=== PATIENT | female | born 1945 | race Caucasian/White ===

== ENCOUNTER 2021-01-08 08:20 | Inpatient (IN) | payer OTHER ==
[~2021-01-08] VITALS: Ht 157.5 cm; Wt 43.1 kg
[2021-01-08 10:32] VITALS: BP 117/88
[2021-01-08] MEDS ORDERED: DURAGESIC1 EAC4 (13:39)
[2021-01-08] MEDS ORDERED: ZOLOFT25 MG (13:40)
[2021-01-08] MEDS ORDERED: CHILDREN'S ASPI81 M1 (13:41)
[2021-01-08] MEDS ORDERED: CALCIUM + D3 E1 EACH (13:42)
[2021-01-08] MEDS ORDERED: LIPITOR 20 MG T20 M1 (13:42)
[2021-01-08] MEDS ORDERED: AMITIZA 24 MCG24 MC1 (13:46)
[2021-01-08] MEDS ORDERED: LISINOPRIL10 MG (13:47)
[2021-01-08 16:05] VITALS: BP 77/46
[2021-01-08 17:17] LABS: ABSOLUTE LYMPHOCYTES 1.2 thou/uL (0.8-5.3); ABSOLUTE MONOCYTES 0.7 thou/uL (0.0-1.2); ABSOLUTE NEUTROPHILS 4.4 thou/uL (1.6-8.1); BASOPHILS 0.5 %; EOSINOPHILS 0.4 %; HEMATOCRIT 35.6 % (37.0-47.0); HEMOGLOBIN 11.9 gm/dL (12.0-15.0); LYMPHOCYTES 18.5 %; MCH 30.4 pg (26.0-34.0); MCHC 33.5 g/dL (28.0-37.0); MCV 90.8 fL (80.0-100.0); MONOCYTES 11.1 %; MPV 7.1 fl. (7.2-11.1); NUCLEATED RBCS 0 /100WBC; PLATELET COUNT* 260 thou/uL (150-400); POLYS 69.5 %; RBC 3.93 mil/uL (4.20-5.00); WBC 6.4 thou/uL (4.0-11.0)
[2021-01-08 17:28] LABS: ALBUMIN 3.3 g/dL (3.4-5.0); CALCIUM 8.4 mg/dL (8.5-10.1); TOTAL BILIRUBIN 0.3 mg/dL (<0.1-1.0); TOTAL PROTEIN 7.1 g/dL (6.4-8.2)
[2021-01-08 20:27] VITALS: BP 118/69
[2021-01-09 07:25] VITALS: BP 146/85
[2021-01-09 09:19] VITALS: BP 146/85
[2021-01-09 09:37] VITALS: BP 146/85
[2021-01-09] MEDS ORDERED: OXYCODONE HCL 55 MG PO (13:31)
--- NOTE | 2021-01-09 17:14 | 2DMMODE ---
[place] [address] 2 D/M-MODE ECHOCARDIOGRAM Name: TOMMY GUZMAN Room: [address] [place] .R.#: [id number] Admission: 01/08/21 Attend Phys: Hesham Chaparro Discharge: 01/09/21 Date of : 45 Date of Service: 01/09/21 1714 Report #: [id number] THIS REPORT FOR: cc: Najma Rojas MD, Marc D. FNPC Blick, David R. MD [facility] ~ APPROVED REPORT Study performed: 01/09/2021 13:48:50 EXAM: Comprehensive 2D, Doppler, and color-flow Echocardiogram Patient Location: In-Patient Room #: 113 Status: routine BSA: 1.39 HR: 84 bpm BP: 146/85 mmHg Rhythm: NSR Other Information Study Quality: Good Indications Murmur 2D Dimensions IVSd: 10.89 (7-11mm) LVOT Diam: 19.92 (18-24mm) LVDd: 35.42 mm PWd: 9.66 (7-11mm) Ascending Ao: 32.70 (22-36mm) LVDs: 16.80 (25-40mm) Aortic Root: 35.27 mm Volumes Left Atrial Volume (Systole) LA ESV Index: 15.00 mL/m2 Aortic Valve AoV Peak Kavin.: 1.18 m/s AO Peak Gr.: 5.55 mmHg LVOT Max P.93 mmHg AO Mean Gr.: 3.08 mmHg LVOT Mean P.82 mmHg LVOT Max V: 0.99 m/s AO V2 VTI: 23.70 cm LVOT Mean V: 0.61 m/s GARRY (VTI): 2.78 cm2 LVOT V1 VTI: 21.14 [place] [address] 2 D/M-MODE ECHOCARDIOGRAM Name: TOMMY GUZMAN Room: [address] [place] .R.#: [id number] Admission: 01/08/21 Attend Phys: Hesham Chaparro Discharge: 01/09/21 Date of : 45 Date of Service: 01/09/21 1714 Report #: [id number] Mitral Valve E/A Ratio: 0.58 MV Decel. Time: 174.04 ms MV E Max Kavin.: 0.55 m/s MV PHT: 50.47 ms MVA (PHT): 4.36 cm2 TDI E/Lateral E': 6.11 E/Medial E': 6.88 Medial E' Kavin.: 0.08 m/s Lateral E' Kavin.: 0.09 m/s Pulmonary Valve PV Peak Kavin.: 0.79 m/s PV Peak Gr.: 2.51 mmHg Tricuspid Valve RAP Estimate: 5.00 mmHg TR Peak Gr.: 31.72 mmHg RVSP: 36.00 mmHg PA Pressure: 36.00 mmHg Left Ventricle The left ventricle is normal size. There is normal LV segmental wall motion. There is normal left ventricular wall thickness. Left ventricular systolic function is normal. The left ventricular ejection fraction is within the normal range. LVEF is 65-70%. Grade I - abnormal relaxation pattern. Right Ventricle The right ventricle is normal size. The right ventricular systolic function is normal. Atria The left atrium size is normal. The right atrium size is normal. Aortic Valve The aortic valve is normal in structure. No aortic regurgitation is present. There is no aortic valvular stenosis. Mitral Valve The mitral valve is normal in structure. Mild mitral regurgitation. No evidence of mitral valve stenosis. Tricuspid Valve The tricuspid valve is normal in structure. Trace tricuspid regurgitation. estimated pa pressure 40 [place] [address] 2 D/M-MODE ECHOCARDIOGRAM Name: TOMMY GUZMAN Room: [address] [place] ..#: [id number] Admission: 01/08/21 Attend Phys: Hesham Chaparro Discharge: 01/09/21 Date of : 45 Date of Service: 01/09/21 1714 Report #: [id number] Pulmonic Valve The pulmonary valve is normal in structure. Mild pulmonic regurgitation. Great Vessels The aortic root is normal in size. IVC is normal in size and collapses >50% with inspiration. Pericardium There is no pericardial effusion. <Conclusion> LVEF is 65-70%. Mild mitral regurgitation. Trace tricuspid regurgitation. estimated pa pressure 40 mm Hg <ELECTRONICALLY SIGNED> By: Ryan Rush MD, [facility] 01/09/211713 13 13 Ryan Rush MD, FACC /INF
== END 2021-01-09 14:16 | disposition home or self-care (01) | DRG 543 ==
LOC: M.PRE 08:20 → M.ORTHSURG 10:12
PROVIDERS: Orthopaedic Surgery; ADMIT Internal Medicine; ATTEND Internal Medicine
DX: M80.031A Age-related osteoporosis with current pathological fracture, right forearm, initial encounter for fracture (principal); E87.1 Hypo-osmolality and hyponatremia; E44.1 Mild protein-calorie malnutrition; Z68.1 Body mass index [BMI] 19.9 or less, adult; I10 Essential (primary) hypertension; E78.5 Hyperlipidemia, unspecified; F32.9 Major depressive disorder, single episode, unspecified; I73.9 Peripheral vascular disease, unspecified; F17.210 Nicotine dependence, cigarettes, uncomplicated; Z96.641 Presence of right artificial hip joint; Z88.2 Allergy status to sulfonamides; Z79.82 Long term (current) use of aspirin; Z79.899 Other long term (current) drug therapy

== ENCOUNTER → 2021-01-25 | Day surgery (SDC) | payer OTHER ==
[~2021-01-25] MED LIST: AMITIZA 24 MCG24 MC1; CALCIUM + D3 E1 EACH; CHILDREN'S ASPI81 M1; DURAGESIC1 EAC4; FLEXERIL PO; LIPITOR 20 MG T20 M1; LIPITOR40 MG PO; LISINOPRIL10 MG; OXYCODONE HCL 55 MG PO; PLAVIX 75 MG TA75 MG PO; ZOLOFT25 MG
--- NOTE | ~2021-01-25 | OP ---
[facility] [place] [address] OPERATIVE REPORT Name: TOMMY GUZMAN Room: [facility]#: [id number] Admission: 01/25/21 Attend Phys: Fadi Dewitt, Discharge: Date of : 45 Report #: [id number] THIS REPORT FOR: cc: Chago Medina Marc D. FNPC Barnhill, Gregory L. DO ~ DOC #: [id number] Jae Freitas DO DATE OF SURGERY: 01/25/2021 Dr. Jae Freitas dictating for Dr. Fadi Dewitt. PREOPERATIVE DIAGNOSIS: Displaced, comminuted, closed right distal radius fracture. POSTOPERATIVE DIAGNOSIS: Greater than 3-part closed right distal radius fracture. PROCEDURE: Open reduction and internal fixation of right distal radius. IMPLANTS: [employer] distal radius plate, narrow. SURGEON: Fadi Dewitt DO ASSISTANTS: 1. Jae Freitas DO 2. Joaquin Cortes DO ANESTHESIA: General and supraclavicular nerve block by Anesthesia. FLUIDS: Crystalloid per Anesthesia. ESTIMATED BLOOD LOSS: 5 mL. DRAINS: None. SPECIMENS: None. COMPLICATIONS: None. CONDITION: Stable to PACU. DISPOSITION: Recovery in the PACU and discharged home. ANTIBIOTICS: 1 gram Ancef IV preop. [facility] [place] [place] [address] OPERATIVE REPORT Name: TOMMY GUZMAN Room: [facility]#: [id number] Admission: 01/25/21 Attend Phys: Fadi Dewitt, Discharge: Date of : 45 Report #: [id number] TOURNIQUET TIME: 60 minutes at 250 mmHg. INDICATIONS FOR PROCEDURE: The patient is a 75-year-old female who sustained a ground level fall at home approximately 2 weeks ago. She presented to an outside Emergency Department where x-rays identified a displaced distal radius fracture. She then subsequently followed up at [facility] and was admitted overnight. She was then discharged and followed up in clinic. Repeat radiographs showed a displaced and significantly dorsally angulated distal radius fracture. Given the amount of her angulation, comminution and displacement, we discussed open reduction and internal fixation. We did also discuss nonoperative treatments and the ramifications of both. The risks, benefits, alternatives and possible complications of surgery including, but not limited to pain, stiffness, infection, nonunion, malunion, hardware failure, need for repeat surgery, neurovascular injury, DVT, PE, and anesthetic complications. She expressed her understanding and wished to proceed. We did also discuss the increased risk of complications given her history of smoking and strongly advised that she quit. DESCRIPTION OF PROCEDURE: The patient was met in the preoperative area. Consent was obtained both verbally and written. The correct site was marked. She was transferred to the operative suite and placed supine on the operative table. She was given the benefit of general anesthetic. A well-padded nonsterile tourniquet was applied to the right upper arm. The right upper extremity was then prepped and draped in the usual sterile fashion. A timeout was performed to verify the correct patient, procedure and operative site. All in the room were in agreement. We exsanguinated the extremity with an Esmarch, followed by elevation of the tourniquet. We then began the procedure with the volar incision based over the FCR tendon. We carried this through the tendon sheath and exposed the tendon itself. We then retracted the tendon and then carried dissection down through the floor of the tendon sheath. We bluntly dissected through soft tissue down to the level of the pronator quadratus. We then elevated this off the distal radius in an L-type fashion on the radial side and distal end, and used a small elevator to remove soft tissue from the distal radius. At this point, we identified our fracture. We were able to get this open using a [place] elevator and an osteotome. We irrigated and cleaned out interposed tissue. We then performed a reduction remover restoring appropriate inclination, height and volar angulation. We then selected the narrow plate and applied this to the distal radius. We placed two temporary K-wires, one distally and one proximally. We took fluoroscopic images to confirm appropriate positioning of the plate and adequate reduction. We then placed two cortical screws distally to bring the plate down to bone. We then filled the most distal screw holes with locking smooth pegs. We then turned our attention proximally where we drilled in the oblong hole on the distal aspect in order to help gain length at the fracture site. We placed an appropriately sized cortical screw, which also brought the plate down to bone and also assisted with volar tilt. We [address] [address] OPERATIVE REPORT Name: TOMMY GUZMAN Room: [facility] M.R.#: [id number] Admission: 01/25/21 Attend Phys: Fadi Dewitt, Discharge: Date of : 45 Report #: [id number] then placed one additional cortical screw proximally and a locking screw proximally given her poor bone quality. We then placed a styloid screw with fluoroscopic guidance. We drilled and placed a fully threaded locking screw into the radial styloid. We took final fluoroscopic images to confirm appropriate fracture reduction and placement of our plate. We also did ensure that there were no screws into the radiocarpal joint. Final x-rays were taken and saved. The tourniquet was then let down. Hemostasis was obtained with electrocautery. The radial artery was found to be intact. We thoroughly irrigated the wound. The subcutaneous tissue was closed with 3-0 Vicryl suture in simple interrupted inverted fashion. The skin was closed with 3-0 nylon in a running fashion. We then applied a sterile dressing including Xeroform and 4 x 4s. We applied a well-padded volar splint. The patient tolerated the procedure well and was transferred to the PACU in stable condition without complications. Needle and sponge counts were correct x 2 at the end of the case. Dr. Dewitt was present and scrubbed throughout all critical aspects of the case. DO AKIRA Sherwood/ROC By: [id number] Dewitt DO /nt
[2021-01-25 08:27] LABS: HEMOGLOBIN 11.9 gm/dL (12.0-15.0); MCH 30.3 pg (26.0-34.0); MCHC 34.1 g/dL (28.0-37.0); MCV 88.8 fL (80.0-100.0); MPV 6.6 fl. (7.2-11.1); RBC 3.94 mil/uL (4.20-5.00); RDW-CV 14.4 % (10.5-14.5); WBC 9.1 thou/uL (4.0-11.0)
[2021-01-25 08:36] LABS: CALCIUM 8.9 mg/dL (8.5-10.1); CREATININE 0.9 mg/dL (0.6-1.3)
[2021-01-25 08:37] LABS: POTASSIUM 4.2 mmol/L (3.5-5.1)
--- NOTE | 2021-01-25 15:16 | EKG ---
[place] [address] ELECTROCARDIOGRAM REPORT Name: TOMMY GUZMAN Room: [facility]#: [id number] Admission: 01/25/21 Attend Phys: Fadi Woodruff Discharge: Date of : 45 Date of Service: 01/25/21801 Report #: [id number] THIS REPORT FOR: //name// [facility] Test Date: 2021-01-25 Test Time: 08:02:02 Pat Name: TOMMY GUZMAN Department: Room: Gender: Public Relations Account Executive: : 1945 Requested By: Fadi Dewitt Order Number: [id number] Jack MD: Ryan Rush Measurements Intervals [place] Rate: 74 P: 21 NM: 181 QRS: -60 QRSD: 106 T: 37 QT: 387 QTc: 430 Interpretive Statements Sinus rhythm Inferior infarct, old septal infarct, old Lateral leads are also involved No previous ECG available for comparison Electronically Signed On 01-25-2021 15:16:04 CDT by Ryan Rush [email or web address] <ELECTRONICALLY SIGNED> By: Ryan Rush MD, [facility] 01/25/21 1516 08 0802 Ryan Rush MD, [facility] /EPI
== END | disposition home or self-care (01) ==
LOC: M.SUR 06:12
PROVIDERS: ATTEND Orthopaedic Surgery
DX: S52.571A Other intraarticular fracture of lower end of right radius, initial encounter for closed fracture (principal); M25.531 Pain in right wrist; I10 Essential (primary) hypertension; E78.5 Hyperlipidemia, unspecified; F32.9 Major depressive disorder, single episode, unspecified; Z98.890 Other specified postprocedural states; Z79.899 Other long term (current) drug therapy; Z20.822 Contact with and (suspected) exposure to COVID-19; Z96.641 Presence of right artificial hip joint; Z88.2 Allergy status to sulfonamides; X58.XXXA Exposure to other specified factors, initial encounter; Y93.89 Activity, other specified; Y92.89 Other specified places as the place of occurrence of the external cause; Y99.8 Other external cause status